=== PATIENT | female | born 1970 | race Caucasian/White ===

== ENCOUNTER → 2016-11-13 | Outpatient (CLI) | payer OTHER | LOC: LAB 13:02 | DX: E55.9 Vitamin D deficiency, unspecified (principal) | CPT/HCPCS: 36415 ==

== ENCOUNTER 2016-11-22 11:44 | Emergency (ER) | payer OTHER ==
[2016-11-22 12:43] LABS: HEMOGLOBIN 13.4 gm/dl (12.3-15.3); RED BLOOD COUNT 4.43 M/UL (4.00-5.10); WHITE BLOOD COUNT 6.9 K/UL (4.5-11.0)
== END 2016-11-22 15:15 | disposition home or self-care (01) ==
LOC: ER1 11:44
PROVIDERS: Physician Assistant
DX: R10.84 Generalized abdominal pain (principal); R11.2 Nausea with vomiting, unspecified; J44.9 Chronic obstructive pulmonary disease, unspecified; Z90.49 Acquired absence of other specified parts of digestive tract; Z88.5 Allergy status to narcotic agent; Z88.8 Allergy status to other drugs, medicaments and biological substances
CPT/HCPCS: 36415; 80048; 80076; 81001; 82150; 83605; 83690; 85025; 96374; 96375; 99284; J2270; J2405; J7040; J7050; Q9962

== ENCOUNTER → 2016-12-02 | Outpatient (CLI) | payer OTHER ==
[2016-12-02 15:54] LABS: HEMOGLOBIN 13.5 gm/dl (12.3-15.3); RED BLOOD COUNT 4.49 M/UL (4.00-5.10); WHITE BLOOD COUNT 7.3 K/UL (4.5-11.0)
[2016-12-02 16:11] LABS: BUN/CREATININE RATIO 14 (0-10)
== END ==
LOC: LAB 14:58
PROVIDERS: Nurse Practitioner Family
DX: K59.00 Constipation, unspecified (principal); R53.81 Other malaise; K21.9 Gastro-esophageal reflux disease without esophagitis; R10.84 Generalized abdominal pain
CPT/HCPCS: 36415; 80053; 82784; 82785; 84443; 84479; 85025; 86376

== ENCOUNTER → 2017-01-30 | Outpatient (CLI) | payer OTHER | LOC: LAB 10:47 | DX: E55.9 Vitamin D deficiency, unspecified (principal) | CPT/HCPCS: 36415 ==

== ENCOUNTER → 2017-05-25 | Outpatient (CLI) | payer OTHER | LOC: LAB 12:17 | DX: M06.0 Rheumatoid arthritis without rheumatoid factor (principal) | CPT/HCPCS: 36415; 82550; 84550; 86039; 86140; 86200; 86431 ==